=== PATIENT | female | born 1995 | race Caucasian/White ===

== ENCOUNTER 2016-11-19 19:14 | Emergency (ER) | payer BC ==
[2016-11-19 19:20] VITALS: RESP 16; TEMP 97.5
--- NOTE | 2016-11-19 19:53 | EDPHY ---
H & P Stated Complaint: cut distal RLE while hiking, thinks needs stitches HPI/ROS: Chief complaint: Right leg laceration History of present illness: This is a 21-year-old female who presents to the emergency department for a right leg laceration. Patient was hiking on snow when she fell through the snow and struck her right lower leg against a rock. She sustained a laceration at that time. That was approximately 2 to 3 hours ago. She has had mild pain. Bleeding has been controlled with application of a dressing. She has been able to walk on it without difficulty. She denies associated signs or symptoms including no abnormal coolness or paresthesias in the right lower extremity. No other trauma reported. Her tetanus is up-to- date. - Personal History Current Tetanus Diphtheria and Acellular Pertussis (TDAP): Yes - Medical/Surgical History Hx Asthma: No Hx Chronic Respiratory Disease: No Hx Diabetes: No Hx Cardiac Disease: No Hx Renal Disease: No Hx Cirrhosis: No Hx Alcoholism: No Hx HIV/AIDS: No Hx Splenectomy or Spleen Trauma: No Other PMH: none - Social History Smoking Status: Never smoked - Physical Exam Exam: General: Alert, nontoxic Skin: There is a 7 cm laceration to the anteromedial aspect of the right lower extremity Musculoskeletal: Patient is moving her right lower extremity in the toes, ankle , knee and hip in all smiley well. She is ambulating without difficulty. Vascular: DP and PT pulses 2+. Neurologic: Sensation intact in the right lower extremity. Constitutional: Initial Vital Signs Temperature (C) 36.4 C 11/19/16 19:17 Heart Rate 107 H 11/19/16 19:17 Respiratory Rate 16 11/19/16 19:17 Blood Pressure 124/93 H 11/19/16 19:17 O2 Sat (%) 96 11/19/16 19:17 O2 Delivery Mode Room Air Allergies/Adverse Reactions: Milk Containing Products [dairy] Allergy (Verified 11/19/16 19:20) Home Medications: Medication Instructions Recorded NK [No Known Home Meds] 11/19/16 Medical Decision Making Procedures: Procedure: Laceration repair. Verbal consent was obtained from the patient. The 7 cm laceration on the right leg was anesthetized in the usual fashion. The wound was irrigated, draped and explored to its base with a gloved finger. There were no deep structures involved. No tendon injury was identified. The wound was repaired with 3 0 Ethilon, 14 simple interrupted sutures. The wound repair was simple. The procedure was performed by myself. ED Course/Re-evaluation: Patient seen under the supervision of my secondary supervising physician Dr. Rasta Doran. Patient presents to the emergency department for evaluation of a laceration to her right lower leg. The right lower leg is neurovascularly intact. She appears to have good musculoskeletal control of it. She is ambulating well. I have offered x-rays to assess for foreign bodies or deep structure injury, she has declined. The wound has been cleaned, repaired and dressed. She will be discharged home. Home care has been discussed. She is referred to Orthopedics for recheck. She is concerned about scar formation and has been given referral information to Plastic surgery. Return precautions are given. The patient voiced understanding and agreement with plan. Differential Diagnosis: Included but not limited to laceration, foreign body contamination, deep structure injury Departure - Departure Disposition: Home, Routine, Self-Care Clinical Impression: Laceration of right lower leg Qualifiers: Encounter type: initial encounter Qualified Code(s): S81.811A - Laceration without foreign body, right lower leg, initial encounter Condition: Good Instructions: Care For Your Stitches (ED), Laceration (ED), Acute Wounds (ED) Additional Instructions: Follow-up with orthopedics for recheck of your injury You can also follow up with Orthopedics to discuss scar formation management Stitches to be removed in 12-14 days If symptoms worsen or new symptoms develop return to the emergency room for recheck Referrals: NONE *PRIMARY CARE P,. [Primary Care Provider] - As per Instructions Noemi Paul MD [Medical Doctor] - As per Instructions Hitesh Patterson MD [Medical Doctor] - As per Instructions
[2016-11-19 20:40] VITALS: BP 125/72; PULSE 81; O2SAT 98
== END 2016-11-19 20:39 | disposition home or self-care (01) ==
PROC: 0HQKXZZ Repair Right Lower Leg Skin, External Approach (ICD-10-PCS; principal; 2016-11-19)
DX: S81.811A Laceration without foreign body, right lower leg, initial encounter (principal); W00.9XXA Unspecified fall due to ice and snow, initial encounter; Y93.01 Activity, walking, marching and hiking

== ENCOUNTER → 2016-11-28 | Outpatient (CLI) | payer BC | LOC: BMCIMAGING 13:59 | PROVIDERS: ATTEND Family Medicine | DX: S89.91XA Unspecified injury of right lower leg, initial encounter (principal); Y93.01 Activity, walking, marching and hiking; W19.XXXA Unspecified fall, initial encounter ==